=== PATIENT | female | born 1955 | race Caucasian/White ===

== ENCOUNTER 2016-12-16 08:29 | Day surgery (SDC) | payer OTHER ==
[~2016-12-16] VITALS: Ht 172.7 cm; Wt 102.1 kg
[~2016-12-16 08:29] MED LIST: ASPI-973 PO; HYG25 PO; LISI10TA PO; Sodium Chloride LOK Flush 10 mL Syringe IV PRN; fentaNYL-PF 50 mCg/mL 2 mL Inj IVPUSH PRN
[2016-12-16 08:45] VITALS: BP 127/69; PULSE 68; RESP 16; O2SAT 96
[2016-12-16] MEDS: 0.9% Sodium Chloride 1,000 ML IV SCH ×2 (08:53→08:58)
[2016-12-16 10:03] VITALS: BP 113/68; PULSE 58; RESP 16; O2SAT 94
[2016-12-16 10:10] VITALS: BP 114/64; PULSE 62; RESP 16; O2SAT 96
[2016-12-16 10:15] VITALS: BP 117/77; PULSE 56; RESP 16; O2SAT 96
--- NOTE | 2016-12-16 20:41 | ENDO ---
[address] [address] ENDOSCOPY PROCEDURE PATIENT: ADRIANNA SAMAYOA : 1955 MR#: [id number] ADMIT: 12/16/2016 JOB ID: [id number] DATE: 12/16/2016 PRIMARY PROVIDER: Junie Nava MD PROCEDURE: Colonoscopy. INDICATIONS: A 61-year-old female with right lower quadrant pain of uncertain etiology. EQUIPMENT: PCF H 180 AL. SEDATION: 1. 4 mg Versed. 2. 100 mcg fentanyl. COMPLICATIONS: None identified. BOWEL PREPARATION: Fair, adequate exam. PROCEDURE INFORMATION: After the risks and benefits were explained, written and verbal informed consent was obtained. The patient was brought into the endoscopy suite and placed into the left lateral decubitus position. Sedation was achieved using the above-stated medications with the addition of oxygen via nasal cannula. A digital rectal examination was accomplished. No significant pathology appreciated. The scope was introduced into the rectum and advanced under direct visualization to the level of the cecum, as identified by the appendiceal orifice and ileocecal valve. The terminal ileum was briefly accessed. The scope then slowly withdrawn to carefully examine the mucosa for any defects or lesions. Multiple direct views were made through the dentate line for exclusion of pathology. The colon was decompressed, the scope removed the patient who tolerated the procedure well. FINDINGS: No significant polyps, mass lesions, or inflammatory features identified throughout. The terminal ileum was evaluated and appeared completely normal. No explanation for the chronic right lower quadrant pain identified. There was some mild diverticula in the left colon. ENDOSCOPIC DIAGNOSES: 1. Diverticulosis. 2. Mild hemorrhoids. RECOMMENDATIONS: 1. Repeat colonoscopy, 10 years. 2. As there was no obvious explanation for the patient's symptoms today, repeat CAT scan is pursued. 3. In the interim, she is encouraged to maintain a diet that is high in fiber to promote soft, regular bowel movements.
== END 2016-12-16 23:59 | disposition home or self-care (01) ==
LOC: END 08:29
PROVIDERS: ATTEND Internal Medicine Gastroenterology
DX: K57.30 Diverticulosis of large intestine without perforation or abscess without bleeding (principal); K64.9 Unspecified hemorrhoids; R10.31 Right lower quadrant pain; Z79.82 Long term (current) use of aspirin
CPT/HCPCS: 45378; 99153; G0500; J2250; J3010; J7030